=== PATIENT | female | born 1985 | race Caucasian/White ===

== ENCOUNTER → 2019-05-22 | Emergency (ER) | payer MEDICAID ==
[~2019-05-22] MED LIST: CEPH500C PO
--- OUTSIDE RECORDS SUMMARY | 2019-05-22 01:33 | XMS REPORT ---
Author Author ANA JAMES [facility] Address [address] [place] [address] Phone Unavailable Care Team Providers Care Powerhouse Mechanic Supervisor Name Role Phone ANA JAMES Unavailable Unavailable PROBLEMS Unknown Problems ALLERGIES No Known Allergies ENCOUNTERS Encounter Location Date Diagnosis [facility] [address] [id number] [place] [address] [phone] Sep, Dental examination Z01.20 [facility] [address] [id number] [place] [address] [phone] Jun, Dental examination Z01.20 [facility] [address] [id number] [place] [address] [phone] Feb, Dental examination Z01.20 [facility] [address] [id number] [place] [address] [phone] Nov, Dental examination Z01.20 [facility] [address] [id number] [place] [address] [phone] Nov, Encounter for dental exam and cleaning w/o abnormal findings Z01.20 [facility] [address] [id number] [place] [address] [phone] Jul, Encounter for dental examination and cleaning without abnormal findings Z01.[address] [id number] [phone] Jun, Encounter for dental examination Z01.20 [facility] [address] [id number], [place] [phone] Apr, Encounter for dental examination and cleaning without abnormal findings Z01.20 [facility] [address] [id number], [place] [phone] Jan, Encounter for dental examination and cleaning without abnormal findings Z01.20 [facility] [id number] [place] [address] [phone] Oct, Encounter for dental examination and cleaning without abnormal findings Z01.20 [facility] [address] [id number] [place] [phone] Jun, Encounter for dental examination and cleaning without abnormal findings Z01.20 [facility] [address] [id number] [place] [phone] Feb, Dental examination Z01.20 [facility] [address] [id number], [place] [phone] Feb, Encounter for dental examination and cleaning with abnormal findings Z01.21 [facility] [address] [facility] [id number] [place] [address] Jun, IMMUNIZATIONS No Known Immunizations SOCIAL HISTORY Never Assessed REASON FOR VISIT PLAN OF CARE Activity Details Follow Up 3 Months Reason:on site recall VITAL SIGNS MEDICATIONS Medication Instructions Dosage Frequency Start Date End Date Duration Status Depo-Provera 150 MG/ML 1 ml Active MiraLax Active Glimepiride 2 MG Active Desmopressin Acetate 0.1 MG Orally Twice a day 1 tablet 12h Active Loratadine 10 MG Orally Once a day 1 tablet 24h Active RESULTS No Results PROCEDURES Procedure Date Ordered Result Body Site SCREENING OF A PATIENT Oct 13, 2018 Billing Notes on claim Oct 13, 2018 INSTRUCTIONS MEDICATIONS ADMINISTERED No Known Medications MEDICAL (GENERAL) HISTORY Type Description Date Surgical History No know Surgical history
--- OUTSIDE RECORDS SUMMARY | 2019-05-22 01:33 | XMS REPORT ---
Author Author ANA JAMES Organization [facility] Address [address] [place] [address] Phone Unavailable Care Team Providers Care Drug And Alcohol Counselor Name Role Phone ANA JAMES Unavailable Unavailable PROBLEMS Unknown Problems ALLERGIES No Known Allergies ENCOUNTERS Encounter Location Date Diagnosis [facility] [id number] [place] [address] [phone] Feb, Dental examination Z01.20 [facility] [address] [id number] [place] [address] [phone] Nov, Dental examination Z01.20 [facility] [address] [id number] [place] [address] [phone] Nov, Encounter for dental exam and cleaning w/o abnormal findings Z01.20 [facility] [id number] [place] [address] [phone] Jul, Encounter for dental examination and cleaning without abnormal findings Z01.20 [facility] [address] [id number] [place] [phone] Jun, Encounter for dental examination Z01.20 [facility] [address] [id number] [place] [address] [phone] Apr, Encounter for dental examination and cleaning without abnormal findings Z01.20 [facility] [address] [id number] [place] [address] [phone] Jan, Encounter for dental examination and cleaning without abnormal findings Z01.20 [facility] [id number] [place] [address] [phone] Oct, Encounter for dental examination and cleaning without abnormal findings Z01.20 [facility] [address] [id number] [phone] Jun, Encounter for dental examination and cleaning without abnormal findings Z01.20 [facility] [address] [id number] [place] [phone] Feb, Dental examination Z01.20 [facility] [address] [id number] [place] [phone] Feb, Encounter for dental examination and cleaning with abnormal findings Z01.21 [facility] [address] [facility] [id number] [place] [address] Jun, IMMUNIZATIONS No Known Immunizations SOCIAL HISTORY Never Assessed REASON FOR VISIT ADULT OUTREACH [facility] PLAN OF CARE Activity Details Follow Up 3 Months Reason:ON SITE RECALL VITAL SIGNS MEDICATIONS Medication Instructions Dosage Frequency Start Date End Date Duration Status Desmopressin Acetate 0.1 MG Orally Twice a day 1 tablet 12h Unknown Glimepiride 2 MG Unknown Depo-Provera 150 MG/ML 1 ml Unknown Loratadine 10 MG Orally Once a day 1 tablet 24h Unknown RESULTS No Results PROCEDURES Procedure Date Ordered Result Body Site TOPICAL FLUORIDE VARNISH Nov 18, 2017 SCREENING OF A PATIENT Nov 18, 2017 Billing Notes on claim Nov 18, 2017 INSTRUCTIONS MEDICATIONS ADMINISTERED No Known Medications
--- OUTSIDE RECORDS SUMMARY | 2019-05-22 01:33 | XMS REPORT ---
Author Author TRISTEN OSUNA Organization [facility] Address [address] [place] [address] Care Team Providers Care Artificial Pearl Maker Name Role Phone TRISTEN OSUNA Unavailable PROBLEMS Unknown Problems ALLERGIES No Known Allergies ENCOUNTERS Encounter Location Date Diagnosis [facility] [id number] [place] [address] [phone] Jun, Dental examination Z01.20 [facility] [address] [id number] [place] [address] [phone] Feb, Dental examination Z01.20 [facility] [id number] [place] [address] [phone] Nov, Dental examination Z01.20 [facility] [address] [id number] [place] [address] [phone] Nov, Encounter for dental exam and cleaning w/o abnormal findings Z01.20 [facility] [address] [id number] [place] [address] [phone] Jul, Encounter for dental examination and cleaning without abnormal findings Z01.[address] [id number] [phone] Jun, Encounter for dental examination Z01.20 [facility] [address] [id number][place] [phone] Apr, Encounter for dental examination and cleaning without abnormal findings Z01.20 [facility] [id number] [place] [address] [phone] Jan, Encounter for dental examination and cleaning without abnormal findings Z01.20 [facility] [address] [id number][place] [phone] Oct, Encounter for dental examination and cleaning without abnormal findings Z01.20 [facility] [address] [id number] [place] [phone] Jun, Encounter for dental examination and cleaning without abnormal findings Z01.20 [facility] [address] [id number] [place] [phone] Feb, Dental examination Z01.20 [facility] [address] [facility] [id number] [place] [phone] Feb, Encounter for dental examination and cleaning with abnormal findings Z01.21 [facility] [address] [facility] [id number] [place] [address] Jun, IMMUNIZATIONS No Known Immunizations SOCIAL HISTORY Never Assessed REASON FOR VISIT ADULT OUTREACH [facility] PLAN OF CARE Activity Details Follow Up prn Reason:ON SITE RECALL VITAL SIGNS MEDICATIONS Medication Instructions Dosage Frequency Start Date End Date Duration Status MiraLax Active Glimepiride 2 MG Active Loratadine 10 MG Orally Once a day 1 tablet 24h Active Depo-Provera 150 MG/ML 1 ml Active Desmopressin Acetate 0.1 MG Orally Twice a day 1 tablet 12h Active RESULTS No Results PROCEDURES Procedure Date Ordered Result Body Site SCREENING OF A PATIENT Jun 22, 2018 Billing Notes on claim Jun 22, 2018 INSTRUCTIONS MEDICATIONS ADMINISTERED No Known Medications
--- OUTSIDE RECORDS SUMMARY | 2019-05-22 01:33 | XMS REPORT ---
Author Author ANA JAMES [facility] Address [address] [place] [address] Phone Unavailable Care Team Providers Care Product Development Ecologist Name Role Phone ANA JAMES Unavailable Unavailable PROBLEMS Unknown Problems ALLERGIES No Known Allergies ENCOUNTERS Encounter Location Date Diagnosis [facility] [address] [id number] [place]ASE [place] [phone] Jun, [facility] [id number] [place] [address] [phone] Feb, Dental examination Z01.20 [facility] [address] [id number] [place] [address] [phone] Nov, Dental examination Z01.20 [facility] [address] [id number] [place] [address] [phone] Nov, Encounter for dental exam and cleaning w/o abnormal findings Z01.20 [facility] [address] [id number] [place] [address] [phone] Jul, Encounter for dental examination and cleaning without abnormal findings Z01.[address] [facility] [address] [id number] [place]ASE [place] [phone] Jun, Encounter for dental examination Z01.20 [facility] [address] [id number] [place] [phone] Apr, Encounter for dental examination and cleaning without abnormal findings Z01.20 [facility] [address] [id number] [place] [phone] Jan, Encounter for dental examination and cleaning without abnormal findings Z01.20 [facility] [address] [id number] [place] [address] [phone] Oct, Encounter for dental examination and cleaning without abnormal findings Z01.20 [facility] [address] [id number] [place] [address] [phone] Jun, Encounter for dental examination and cleaning without abnormal findings Z01.20 [facility] [address] [id number] [place] [phone] Feb, Dental examination Z01.20 [facility] [address] [id number] [place] [phone] Feb, Encounter for dental examination and cleaning with abnormal findings Z01.21 [facility] [address] [facility] [id number] [place] [address] Jun, IMMUNIZATIONS No Known Immunizations SOCIAL HISTORY Never Assessed REASON FOR VISIT PLAN OF CARE Activity Details Follow Up prn Reason: VITAL SIGNS MEDICATIONS Medication Instructions Dosage Frequency Start Date End Date Duration Status Glimepiride 2 MG Active Desmopressin Acetate 0.1 MG Orally Twice a day 1 tablet 12h Active Depo-Provera 150 MG/ML 1 ml Active Loratadine 10 MG Orally Once a day 1 tablet 24h Active MiraLax Active RESULTS No Results PROCEDURES Procedure Date Ordered Result Body Site TOPICAL FLUORIDE VARNISH March 02, 2018 SCREENING OF A PATIENT March 02, 2018 INSTRUCTIONS MEDICATIONS ADMINISTERED No Known Medications
--- OUTSIDE RECORDS SUMMARY | 2019-05-22 01:33 | XMS REPORT ---
Author Author ANA JAMES Organization [facility] Address [address] [place] [address] Phone Unavailable Care Team Providers Care Graphic User Interface Designer Name Role Phone ANA JAMES Unavailable Unavailable PROBLEMS Unknown Problems ALLERGIES No Information ENCOUNTERS Encounter Location Date Diagnosis [facility] [id number] [place] [address] [phone] Feb, Dental examination Z01.20 [facility] [address] [id number] [place] [address] [phone] Nov, Dental examination Z01.20 [facility] [address] [id number] [place] [address] [phone] Nov, Encounter for dental exam and cleaning w/o abnormal findings Z01.20 [facility] [address] [id number] [place] [address] [phone] Jul, Encounter for dental examination and cleaning without abnormal findings Z01.20 [facility] [address] [id number] [place] [phone] Jun, Encounter for dental examination Z01.20 [facility] [address] [id number], [place] [phone] Apr, Encounter for dental examination and cleaning without abnormal findings Z01.20 [facility] [address] [id number] [place] [address] [phone] Jan, Encounter for dental examination and cleaning without abnormal findings Z01.20 [facility] [address] [id number] [place] [address] [phone] Oct, Encounter for dental examination and cleaning without abnormal findings Z01.20 [facility] [address] [id number], [place] [phone] Jun, Encounter for dental examination and cleaning without abnormal findings Z01.20 [facility] [address] [id number] [place] [phone] Feb, Dental examination Z01.20 [facility] [address] [id number] [place] [phone] Feb, Encounter for dental examination and cleaning with abnormal findings Z01.21 [facility] [address] [facility] [id number] [place] [address] Jun, IMMUNIZATIONS No Known Immunizations SOCIAL HISTORY Never Assessed REASON FOR VISIT ADULT OUTREACH [facility] PLAN OF CARE Activity Details Follow Up 3 Months Reason:ON SITE RECALL VITAL SIGNS MEDICATIONS No Known Medications RESULTS No Results PROCEDURES Procedure Date Ordered Result Body Site TOPICAL FLUORIDE VARNISH Jul 22, 2017 SCREENING OF A PATIENT Jul 22, 2017 Billing Notes on claim Jul 22, 2017 INSTRUCTIONS MEDICATIONS ADMINISTERED No Known Medications
--- OUTSIDE RECORDS SUMMARY | 2019-05-22 01:34 | XMS REPORT | Continuity of Care Document ---
Author Organization Unknown Address Unknown Allergies Active Description Code Type Severity Reaction Onset Reported/Identified Relationship to Patient Clinical Status Yes diazepam [id number] Drug Allergy Unknown N/A 12/17/2017 Medications There is no data. Problems Date Dx Coded Attending Type Code Diagnosis Diagnosed By 12/18/2017 SUSHMA LOPEZ MD Ot F79 UNSPECIFIED INTELLECTUAL DISABILITIES 12/18/2017 SUSHMA LOPEZ MD Ot G40.909 EPILEPSY, UNSP, NOT INTRACTABLE, WITHOUT 12/18/2017 SUSHMA LOPEZ MD Ot K59.00 CONSTIPATION, UNSPECIFIED 12/18/2017 SUSHMA LOPEZ MD Ot N39.0 URINARY TRACT INFECTION, SITE NOT SPECIF 12/18/2017 SUSHMA LOPEZ MD Ot F79 UNSPECIFIED INTELLECTUAL DISABILITIES 12/18/2017 SUSHMA LOPEZ MD Ot G40.909 EPILEPSY, UNSP, NOT INTRACTABLE, WITHOUT 12/18/2017 SUSHMA LOPEZ MD Ot K59.00 CONSTIPATION, UNSPECIFIED 12/18/2017 SUSHMA LOPEZ MD Ot N39.0 URINARY TRACT INFECTION, SITE NOT SPECIF Procedures There is no data. Results Test Result Range Influenza virus A and B antigen detection - 12/17/17 22:44 FLU RESULT NEGATIVE FOR INFLUENZA A AND B ANTIGENS BY IA NRG Urine beta human chorionic gonadotropin (hCG) measurement - 12/18/17 02:00 Urine beta human chorionic gonadotropin (hCG) measurement NEGATIVE NEGATIVE Complete urinalysis with reflex to culture - 12/18/17 02:00 Urine color determination YELLOW NRG Urine clarity determination SLIGHTLY CLOUDY NRG Urine pH measurement by test strip 5 5-9 Specific gravity of urine by test strip 1.025 1.016-1.022 Urine protein assay by test strip, semi-quantitative NEGATIVE NEGATIVE Urine glucose detection by automated test strip 4+ NEGATIVE Erythrocytes detection in urine sediment by light microscopy 1+ NEGATIVE Urine ketones detection by automated test strip 4+ NEGATIVE Urine nitrite detection by test strip NEGATIVE NEGATIVE Urine total bilirubin detection by test strip NEGATIVE NEGATIVE Urine urobilinogen measurement by automated test strip (mass/volume) NORMAL NORMAL Urine leukocyte esterase detection by dipstick 3+ NEGATIVE Automated urine sediment erythrocyte count by microscopy (number/high power field) RARE NRG Automated urine sediment leukocyte count by microscopy (number/high power field) [HPF] NRG Bacteria detection in urine sediment by light microscopy MODERATE NRG Squamous epithelial cells detection in urine sediment by light microscopy 10-25 NRG Crystals detection in urine sediment by light microscopy NONE NRG Casts detection in urine sediment by light microscopy NONE NRG Mucus detection in urine sediment by light microscopy NEGATIVE NRG Complete urinalysis with reflex to culture YES NRG Bacterial urine culture - 12/18/17 02:00 URINE CULTURE RESULTS MORE THAN 3 ISOLATES NRG Complete blood count (CBC) with automated white blood cell (WBC) differential - 12/18/17 02:10 Blood leukocytes automated count (number/volume) 10.8 10*3/uL 4.3-11.0 Blood erythrocytes automated count (number/volume) 4.58 10*6/uL 4.35-5.85 Venous blood hemoglobin measurement (mass/volume) 15.3 g/dL 11.5-16.0 Blood hematocrit (volume fraction) 42 % 35-52 Automated erythrocyte mean corpuscular volume 92 [foz_us] 80-99 Automated erythrocyte mean corpuscular hemoglobin (mass per erythrocyte) 33 pg 25-34 Automated erythrocyte mean corpuscular hemoglobin concentration measurement (mass/volume) 36 g/dL 32-36 Automated erythrocyte distribution width ratio 12.5 % 10.0- 14.5 Automated blood platelet count (count/volume) 200 10*3/uL 130-400 Automated blood platelet mean volume measurement 11.4 [foz_us] 7.4-10.4 Automated blood neutrophils/100 leukocytes 85 % 42-75 Automated blood lymphocytes/100 leukocytes 12 % 12-44 Blood monocytes/100 leukocytes 3 % 0-12 Automated blood eosinophils/100 leukocytes 0 % 0-10 Automated blood basophils/100 leukocytes 0 % 0-10 Blood neutrophils automated count (number/volume) 9.2 10*3 1.8-7.8 Blood lymphocytes automated count (number/volume) 1.3 10*3 1.0-4.0 Blood monocytes automated count (number/volume) 0.3 10*3 0.0- 1.0 Automated eosinophil count 0.0 10*3/uL 0.0-0.3 Automated blood basophil count (count/volume) 0.0 10*3/uL 0.0-0.1 Comprehensive metabolic panel - 12/18/17 02:10 Serum or plasma sodium measurement (moles/volume) 135 mmol/L 135-145 Serum or plasma potassium measurement (moles/volume) 3.6 mmol/L 3.6-5.0 Serum or plasma chloride measurement (moles/volume) 104 mmol/L 98-107 Carbon dioxide 16 mmol/L 21-32 Serum or plasma anion gap determination (moles/volume) 15 mmol/L 5-14 Serum or plasma urea nitrogen measurement (mass/volume) 11 mg/dL 7-18 Serum or plasma creatinine measurement (mass/volume) 0.77 mg/dL 0.60-1.30 Serum or plasma urea nitrogen/creatinine mass ratio 14 NRG Serum or plasma creatinine measurement with calculation of estimated glomerular filtration rate > NRG Serum or plasma glucose measurement (mass/volume) 250 mg/dL 70-105 Serum or plasma calcium measurement (mass/volume) 9.3 mg/dL 8.5-10.1 Serum or plasma total bilirubin measurement (mass/volume) 0.7 mg/dL 0.1-1.0 Serum or plasma alkaline phosphatase measurement (enzymatic activity/volume) 71 U/L 40-136 Serum or plasma aspartate aminotransferase measurement (enzymatic activity/volume) 12 U/L 5-34 Serum or plasma alanine aminotransferase measurement (enzymatic activity/volume) 26 U/L 0-55 Serum or plasma protein measurement (mass/volume) 7.6 g/dL 6.4-8.2 Serum or plasma albumin measurement (mass/volume) 4.2 g/dL 3.2-4.5 Magnesium - 12/18/17 02:10 Magnesium 2.3 mg/dL 1.8-2.4 Serum or plasma troponin i.cardiac measurement (mass/volume) - 12/18/17 02:10 Serum or plasma troponin i.cardiac measurement (mass/volume) < ng/mL <0.30 Serum or plasma C reactive protein measurement (mass/volume) - 12/18/17 02:10 Serum or plasma C reactive protein measurement (mass/volume) 0.95 mg/dL 0.00-0.50 Blood lactic acid measurement (moles/volume) - 12/18/17 02:10 Blood lactic acid measurement (moles/volume) 2.66 mmol/L 0.50- 2.00 Serum or plasma lactate measurement (moles/volume) - 12/18/17 06:38 Serum or plasma lactate measurement (moles/volume) 1.78 mmol/L 0.50-2.00 Encounters ACCT No. Visit Date/Time Discharge Status Pt. Type Provider Facility Loc./Unit Complaint [id number] 12/17/2017 22:34:00 12/18/2017 09:46:00 DIS Inpatient JESSICA GOMEZ, SUSHMA Munoz [facility] 4TH SEPSIS,UTI [id number] 06/10/2013 14:02:00 06/10/2013 23:59:59 CLS Outpatient
--- OUTSIDE RECORDS SUMMARY | 2019-05-22 01:34 | XMS REPORT ---
Author Author ANA JAMES [facility] Address [address] [place] [address] Phone Unavailable Care Team Providers Care Corporate Buyer Name Role Phone ANA JAMES Unavailable Unavailable PROBLEMS Unknown Problems ALLERGIES No Known Allergies ENCOUNTERS Encounter Location Date Diagnosis [facility] [address] [facility] [id number], [place] [address] Feb, [facility] [id number] [place] [phone] Nov, Dental examination Z01.20 [facility] [id number] [place] [phone] Nov, Encounter for dental exam and cleaning w/o abnormal findings Z01.20 [facility] [id number] [place] [id number] Jul, Encounter for dental examination and cleaning without abnormal findings [facility]01.[facility] [address] [id number] [phone] Jun, Encounter for dental examination Z01.20 [facility] [id number] [place] [phone] Apr, Encounter for dental examination and cleaning without abnormal findings Z01.20 [facility] [address] [facility] [id number] [id number] Jan, Encounter for dental examination and cleaning without abnormal findings Z01.20 [facility] [id number] [place] [phone] Oct, Encounter for dental examination and cleaning without abnormal findings Z01.20 [facility] [address] [id number] [phone] Jun, Encounter for dental examination and cleaning without abnormal findings [facility]01.[facility] [address] [id number] [place] [phone] Feb, Dental examination Z01.20 [facility] [address] [id number] [place] [phone] Feb, Encounter for dental examination and cleaning with abnormal findings Z01.21 [facility] [address] [facility] [id number] [place] [address] Jun, IMMUNIZATIONS No Known Immunizations SOCIAL HISTORY Never Assessed REASON FOR VISIT ADULT OUTREACH CLASS [facility] PLAN OF CARE Activity Details Follow Up NEXT MONTH Reason:ON SITE DENTAL EXAM VITAL SIGNS MEDICATIONS Medication Instructions Dosage Frequency Start Date End Date Duration Status Glimepiride 2 MG Active Desmopressin Acetate 0.1 MG Orally Twice a day 1 tablet 12h Active Depo-Provera 150 MG/ML 1 ml Active Loratadine 10 MG Orally Once a day 1 tablet 24h Active RESULTS No Results PROCEDURES Procedure Date Ordered Result Body Site SCREENING OF A PATIENT May 12, 2017 Billing Notes on claim May 12, 2017 INSTRUCTIONS MEDICATIONS ADMINISTERED No Known Medications
--- NOTE | 2019-05-22 02:20 | NUR ---
Patient was not in the waiting room when called.
== END | disposition left against medical advice (07) ==
LOC: EDUNIT# 01:26 → ER 01:28
DX: R45.83 Excessive crying of child, adolescent or adult (principal)

== ENCOUNTER 2020-09-27 22:47 | Emergency (ER) | payer MEDICAID ==
[~2020-09-27] VITALS: Ht 149 cm; Wt 73.0 kg
[2020-09-27] MEDS ORDERED: DESM0.1T5 (23:00)
[2020-09-27] MEDS ORDERED: GLIM2TAB4 (23:00)
[2020-09-27] MEDS ORDERED: ATOR10TA66 (23:00)
[2020-09-27] MEDS ORDERED: MEDR150D6 (23:00)
[2020-09-27] MEDS ORDERED: NS IV 1000 ML 1,000 ML IV SCH (23:07)
[2020-09-27 23:16] LABS: BASOPHILS # (AUTO) 0.1 10^3/uL (0.0-0.1); BASOPHILS % (AUTO) 0 % (0-10); EOSINOPHILS % (AUTO) 0 % (0-10); HEMATOCRIT 44 % (35-52); HEMOGLOBIN 15.5 g/dL (11.5-16.0); LYMPHOCYTES # (AUTO) 1.1 10^3/uL (1.0-4.0); LYMPHOCYTES % (AUTO) 7 % (12-44); MEAN CORPUSCULAR HEMOGLOBIN 33 pg (25-34); MEAN CORPUSCULAR HGB CONC 35 g/dL (32-36); MEAN CORPUSCULAR VOLUME 94 fL (80-99); MEAN PLATELET VOLUME 11.8 fL (9.0-12.2); MONOCYTES # (AUTO) 0.5 10^3/uL (0.0-1.0); MONOCYTES % (AUTO) 3 % (0-12); NEUTROPHILS # (AUTO) 15.9 10^3/uL (1.8-7.8); NEUTROPHILS % (AUTO) 90 % (42-75); PLATELET COUNT 277 10^3/uL (130-400); WHITE BLOOD COUNT 17.7 10^3/uL (4.3-11.0)
[2020-09-27 23:27] LABS: BAND NEUTROPHILS 2 %; BASOPHILS % (MANUAL) 0 %; EOSINOPHILS % (MANUAL) 0 %; LYMPHOCYTES % (MANUAL) 8 %; MONOCYTES % (MANUAL) 2 %; NEUTROPHILS % (MANUAL) 88 %; PROTHROMBIN TIME PATIENT 13.9 SEC (12.2-14.7); TOXIC GRANULATION/VACUOLAZATIO 1+
[2020-09-27 23:36] LABS: ALANINE AMINOTRANSFERASE 28 U/L (0-55); ALBUMIN 4.5 GM/DL (3.2-4.5); ALKALINE PHOSPHATASE 103 U/L (40-136); BILIRUBIN,TOTAL 0.6 MG/DL (0.1-1.0); BUN/CREATININE RATIO 14; CALCIUM 9.6 MG/DL (8.5-10.1); CARBON DIOXIDE 15 MMOL/L (21-32); CHLORIDE 108 MMOL/L (98-107); CREATININE SERUM 0.95 MG/DL (0.60-1.30); GFR ESTIMATED > 60; GLUCOSE 324 MG/DL (70-105); POTASSIUM 3.7 MMOL/L (3.6-5.0); SODIUM 141 MMOL/L (135-145); TOTAL PROTEIN 7.6 GM/DL (6.4-8.2)
[2020-09-27 23:47] LABS: BILIRUBIN,URINE NEGATIVE (NEGATIVE); CLARITY,URINE CLEAR; COLOR,URINE YELLOW; GLUCOSE, URINE (UA) 2+ (NEGATIVE); KETONES,URINE 3+ (NEGATIVE); LEUKOCYTE ESTERASE ,URINE NEGATIVE (NEGATIVE); NITRITE,URINE NEGATIVE (NEGATIVE); PH,URINE 5.5 (5-9); PROTEIN,URINE NEGATIVE (NEGATIVE)
--- NOTE | 2020-09-27 23:55 | ED General ---
General Chief Complaint: General Problems/Pain Stated Complaint: CONTINUOUS CRYING Nursing Triage Note: brought in by caregiver for "crying" since 1899. pt with hx m.r. mentaliity of approx. 15month old. Nursing Sepsis Screen: No Definite Risk Source of Information: Caregiver Exam Limitations: Other (PT WITH SEVERE DEVELOPMENTAL DISABILITY AND IS ESSENTIALLY UNABLE TO COMMUNICATE) History of Present Illness Date Seen by Provider: Sep 27, 2020 Time Seen by Provider: 22:50 Initial Comments PT ARRIVES VIA POV FROM HOME, WITH SUPERVISOR UNDERWRITING CLERKS SUPERVISOR UNDERWRITING CLERKS AND HER HAVE BEEN PERMANENT CAREGIVERS FOR PT FOR THE LAST 12 YEARS PT HAS A SEPARATE LEGAL GUARDIAN PT REQUIRES FULL ASSIST WITH ALL ADL'S PT HAS MENTALITY OF A 15 MONTH OLD CHILD. SUPERVISOR UNDERWRITING CLERKS STATES THAT PT HAS BEEN "CRYING" SINCE 1899 TONIGHT--"CRYING" IS ACTUALLY A SINGLE, SAME PITCHED "MOAN/WAIL" THAT SHE REPEATS CONTINUOUSLY. THERE ARE NO ACTUAL TEARS SUPERVISOR UNDERWRITING CLERKS DOES STATE THAT SHE BROKE OUT IN A SWEAT AROUND 1899 WELL DID NOT CHECK TEMP NO COUGH NO SHORTNESS OF BREATH NO KNOWN VOMITING OR DIARRHEA HAS BEEN EATING AND DRINKING USUAL PT HAS BEEN AT "SCHOOL" / ADULT DAY CARE ALL DAY AND NO REPORTED PROBLEMS THERE. NO FEVER OR RECENT ILLNESS NO KNOWN EXPOSURE TO COVID-19 PT IS NON-INSULIN DEPENDENT DIABETIC/ TAKES ORAL MEDICATIONS, BUT NEVER CHECKS HER BLOOD GLUCOSE. PT HAS CHRONIC INCONTINENCE AND WEARS AN ADULT DIAPER SHE ALSO HAS CHRONIC CONSTIPATION. HAD DEPO-PROVERA SHOT 2 WEEKS AGO ON ARRIVAL, PT WALKED FROM PARKING LOT, TO WAITING ROOM AND THEN ON WALKING INTO THE ER, SHE PT PROMPTLY SAT ON THE FLOOR OF ER HALLWAY AND REFUSED TO GET UP, EVENTUALLY MULTIPLE STAFF MEMBERS HAD TO PICK HER UP AND CARRY HER INTO ROOM AND ON TO ER CART. SUPERVISOR UNDERWRITING CLERKS STATES THIS IS COMPLETELY NORMAL AND DAILY BEHAVIOR FOR THIS PT--WHEN SHE DOES NOT WANT TO DO SOMETHING, AND SHE AND FREQUENTLY HAVE TO PHYSICALLY PICK HER UP TO GET HER UP FROM THE FLOOR PCP: DR. KILLIAN Allergies and Home Medications Allergies Coded Allergies: diazepam (Verified Allergy, Unknown, 12/17/17) Home Medications Cefuroxime Axetil 500 Mg Tablet, 500 MG PO BID Prescribed by: ALONSO SMYTH on 09/28/20 0020 Cephalexin 500 Mg Capsule, 500 MG PO 3 times a day Prescribed by: SUSHMA LOPEZ on 12/18/17 0946 Patient Home Medication List Home Medication List Reviewed: Yes Review of Systems Review of Systems Constitutional: see HPI (CHANGE IN BEHAVIOR) EENTM: other (HAS CHRONIC DENTAL ISSUES, AND IS SUPPOSED TO BE GETTING SET UP WITH DENTIST TO HAVE EXAM UNDER ANESTHESIA AND SEVERAL TEETH PULLED. ) Respiratory: No cough, No short of breath Gastrointestinal: No diarrhea, No loss of appetite, No vomiting Genitourinary: see HPI (CHRONIC INCONTINENCE) Skin: No rash Psychiatric/Neurological: See HPI Hematologic/Lymphatic: Denies Easy Bleeding, Denies Easy Bruising Past Gijwnqt-Qumclp-Djpvao Hx Past Med/Social Hx: Reviewed and Corrections made Patient Social History Alcohol Use: Denies Use Recreational Drug Use: No Smoking Status: Never a Smoker 2nd Hand Smoke Exposure: No Recent Foreign Travel: No Contact w/Someone Who Travel: No Recent Infectious Disease Expo: No Recent Hopitalizations: No Physical Abuse: No Sexual Abuse: No Mistreated: No Fear: No Immunizations Up To Date Date of Influenza Vaccine: Aug 15, 2017 Seasonal Allergies Seasonal Allergies: Yes Past Medical History Surgeries: No Respiratory: No Cardiac: Yes High Cholesterol Neurological: Yes (MR/DEVELOPMENTAL DISABILITY WITH MENTALITY OF 15 MONTH OLD. ) Developmental Disorder Genitourinary: No Gastrointestinal: Yes Chronic Constipation Musculoskeletal: No Endocrine: No HEENT: No Cancer: No Psychosocial: Yes (MR) Integumentary: No Blood Disorders: No Physical Exam Vital Signs Vital Signs - First Documented 09/27/20 22:50 Temp 37.0 Pulse 165 Resp 26 B/P (MAP) 157/112 (127) Pulse Ox 96 O2 Delivery Room Air Capillary Refill : Less Than 3 Seconds Height, Weight, BMI Height: 4'11.00" Weight: 193lbs. 4.0oz. [id number]; 32.00 BMI Method:Stated General Appearance: Obese, Other (BEHAVIOR NOTED ABOVE. OCCASIONALLY, PT WILL YELL REPEATEDLY "MOM" "OUCH OR OUT OR HOT". VIGOROUSLY FIGHTS TAKING VITALS, OBTAINING LAB, ETC. ) HEENT: Other (UNABLE TO DO FULL ENT EXAM--NO OBVIOUS EXTERNAL ABNORMALITIES. NO DROOLING. ORAL MUCOSA MOIST. LIMITED VIEW OF DENTITION SH0WS EXTENSIVE GINGIVITIS AND DENTAL DECAY WITH MANY NERVE ROOTS EXPOSED. ) Respiratory: Normal Breath Sounds, No Accessory Muscle Use, No Respiratory Distress Cardiovascular: No Edema, No Murmur, Tachycardia (170-180 ON ARRIVAL, WHILE FIGHTING WITH STAFF AND CAREGIVER. ) Gastrointestinal: Non Tender, Soft Extremity: Normal Range of Motion, No Pedal Edema Neurologic/Psychiatric: Alert, Other (GROSS MOTOR AND SENSORY IS INTACT, BUT PT CANNOT FOLLOW ANY COMMANDS, DOES NOT APPEAR TO UNDERSTAND ANYTHING THAT IS GOING ON, AND IS NOT ABLE TO COMMUNICATE WITH GESTURES, AND HAS VERY MINIMAL LANGUAGE, AND THIS IS NON-SENSICAL/NON-RELEVANT SINGLE WORDS AND SOUNDS THAT ARE REPEATED OVER AND OVER NON-STOP FOR THE ENTIRE STAY. ) Skin: Normal Color, Warm/Dry; No Ecchymosis, No Rash Progress/Results/Core Measures Suspected Sepsis Recent Fever Within 48 Hours: No Infection Criteria Present: None New/Unexplained Altered Menta: No Sepsis Screen: No Definite Risk SIRS Temperature: Pulse: 165 Respiratory Rate: 26 Laboratory Tests 09/27/20 23:06: White Blood Count 17.7H Blood Pressure 157 /112 Mean: 127 Laboratory Tests 09/27/20 23:06: Creatinine 0.95, INR Comment 1.0, Platelet Count 277, Total Bilirubin 0.6 Results/Orders Lab Results Laboratory Tests Test 09/27/20 23:06 09/27/20 23:35 Range/Units White Blood Count 17.7 H 4.3-11.0 10^3/uL Red Blood Count 4.67 3.80-5.11 10^6/uL Hemoglobin 15.5 11.5-16.0 g/dL Hematocrit 44 35-52 % Mean Corpuscular Volume 94 80-99 fL Mean Corpuscular Hemoglobin 33 25-34 pg Mean Corpuscular Hemoglobin Concent 35 32-36 g/dL Red Cell Distribution Width 11.9 10.0-14.5 % Platelet Count 277 130-400 10^3/uL Mean Platelet Volume 11.8 9.0-12.2 fL Immature Granulocyte % (Auto) 0 % Neutrophils (%) (Auto) 90 H 42-75 % Lymphocytes (%) (Auto) 7 L 12-44 % Monocytes (%) (Auto) 3 0-12 % Eosinophils (%) (Auto) 0 0-10 % Basophils (%) (Auto) 0 0-10 % Neutrophils # (Auto) 15.9 H 1.8-7.8 10^3/uL Lymphocytes # (Auto) 1.1 1.0-4.0 10^3/uL Monocytes # (Auto) 0.5 0.0-1.0 10^3/uL Eosinophils # (Auto) 0.0 0.0-0.3 10^3/uL Basophils # (Auto) 0.1 0.0-0.1 10^3/uL Immature Granulocyte # (Auto) 0.1 0.0-0.1 10^3/uL Neutrophils % (Manual) 88 % Lymphocytes % (Manual) 8 % Monocytes % (Manual) 2 % Eosinophils % (Manual) 0 % Basophils % (Manual) 0 % Band Neutrophils 2 % Toxic Granulation 1+ Prothrombin Time 13.9 12.2-14.7 SEC INR Comment 1.0 0.8-1.4 Activated Partial Thromboplast Time 25 24-35 SEC Sodium Level 141 135-145 MMOL/L Potassium Level 3.7 3.6-5.0 MMOL/L Chloride Level 108 H 98-107 MMOL/L Carbon Dioxide Level 15 L 21-32 MMOL/L Anion Gap 18 H 5-14 MMOL/L Blood Urea Nitrogen 13 7-18 MG/DL Creatinine 0.95 0.60-1.30 MG/DL Estimat Glomerular Filtration Rate > 60 BUN/Creatinine Ratio 14 Glucose Level 324 H 70-105 MG/DL Glucometer 292 H 70-110 MG/DL Calcium Level 9.6 8.5-10.1 MG/DL Corrected Calcium 9.2 8.5-10.1 MG/DL Magnesium Level 2.0 1.6-2.4 MG/DL Total Bilirubin 0.6 0.1-1.0 MG/DL Aspartate Amino Transf (AST/SGOT) 11 5-34 U/L Alanine Aminotransferase (ALT/SGPT) 28 0-55 U/L Alkaline Phosphatase 103 40-136 U/L Myoglobin 89.3 10.0-92.0 NG/ML Troponin I < 0.028 <0.028 NG/ML B-Type Natriuretic Peptide < 10.0 <100.0 PG/ML Total Protein 7.6 6.4-8.2 GM/DL Albumin 4.5 3.2-4.5 GM/DL TSH Ball Testing 0.69 0.35-4.94 UIU/ML Serum Test, Qualitative NEGATIVE NEGATIVE Urine Color YELLOW Urine Clarity CLEAR Urine pH 5.5 5-9 Urine Specific [place] >=1.030 1.016-1.022 Urine Protein NEGATIVE NEGATIVE Urine Glucose (UA) 2+ H NEGATIVE Urine Ketones 3+ H NEGATIVE Urine Nitrite NEGATIVE NEGATIVE Urine Bilirubin NEGATIVE NEGATIVE Urine Urobilinogen 0.2 < = 1.0 MG/DL Urine Leukocyte Esterase NEGATIVE NEGATIVE Urine RBC (Auto) NEGATIVE NEGATIVE Urine RBC NONE /HPF Urine WBC NONE /HPF Urine Squamous Epithelial Cells 5-10 /HPF Urine Crystals NONE /LPF Urine Bacteria NEGATIVE /HPF Urine Casts NONE /LPF Urine Mucus LARGE H /LPF Urine Culture Indicated NO My Orders Orders - ALONSO SMYTH DO Ed Iv/Invasive Line Start (09/27/20 23:00) Ekg Tracing (09/27/20) Monitor-Rhythm Ecg Trace Only (09/27/20) Straight Cath For Spec.-Adult (09/27/20) Chest 1 View, Ap/Pa Only (09/27/20:) BNP (09/27/20:) Cbc With Automated Diff (09/27/20) Comprehensive Metabolic Panel (09/27/20:) Hcg,Qualitative Serum (09/27/20:) Magnesium (09/27/20:) Protime With Inr (09/27/20:) Partial Thromboplastin Time (09/27/20:) Thyroid Analyzer (09/27/20:) Ua Culture If Indicated (09/27/20:) Myoglobin Serum (09/27/20:) Troponin I (09/27/20 23:) Ed Iv/Invasive Line Start (09/27/20 23:00) Accucheck Stat ONCE (09/27/20 23:07) Ed Iv/Invasive Line Start (09/27/20 23:07) Ns Iv 1000 Ml (Sodium Chloride 0.9%) (09/27/20 23:07) Manual Differential (09/27/20 23:06) Ed Iv/Invasive Line Start (09/28/20 00:07) Ns Iv 1000 Ml (Sodium Chloride 0.9%) (09/28/20 00:07) Ceftriaxone For Iv Use (Rocephin For I (09/28/20 00:15) Ketorolac Injection (Toradol Injection) (09/28/20 00:15) Diphenhydramine Injection (Benadryl Inje (09/28/20 00:15) Medications Given in ED Current Medications Medications Dose Ordered Sig/Arely Route Start Time Stop Time Status Last Admin Dose Admin Ceftriaxone Sodium 1000 mg/ Sterile Water 10 ml @ 200 mls/hr ONCE ONCE IV 09/28/20 00:15 09/28/20 00:17 DC 09/28/20 00:18 200 MLS/HR Diphenhydramine HCl 50 mg ONCE ONCE IVP 09/28/20 00:15 09/28/20 00:16 DC 09/28/20 00:18 50 MG Ketorolac Tromethamine 30 mg ONCE ONCE IVP 09/28/20 00:15 09/28/20 00:16 DC 09/28/20 00:19 30 MG Vital Signs/I&O 09/27/20 09/28/20 09/28/20 22:50 00:19 01:16 Temp 37.0 37.0 37.3 Pulse 165 105 Resp 26 20 B/P (MAP) 157/112 (127) 127/93 (127) Pulse Ox 96 99 O2 Delivery Room Air Room Air Capillary Refill : Less Than 3 Seconds Blood Pressure Mean: 127 Point of Care Testing Finger Stick Blood Glucose: 292 Blood Glucose Action Taken: dr. smyth Progress Note : Progress Note MOM LATER STATES THAT THIS "CRYING" / MOANING IS COMPLETELY NORMAL FOR HER, SHE DOES NOT HAVING TEARS. STATES SHE DID HAVE SOME TEARS INITIALLY AROUND 1900, BUT NO TEARS SINCE WILL HYDRATE, GIVE IV ANTIBIOTICS FOR DENTAL INFECTION, WELL TORADOL FOR PAIN AND BENADRYL FOR AGITATION.--PT IS NO LONGER "CRYING"/MOANING AND IS RESTING QUIETLY AND IS MUCH LESS AGITATED. HEART RATE DOWN PT CALMED AND VITALS STABLE AT DISMISSAL ECG Initial ECG Impression Date: Sep 28, 2020 Initial ECG Impression Time: 23:01 Initial ECG Rate: 152 Initial ECG Rhythm: S.Tach Diagnostic Imaging Comments CXR--POOR INSPIRATION/LIMITED EXAM, NO ACUTE PROCESS--PENDING RADIOLOGIST REVIEW Reviewed: Reviewed by Me Departure Impression Primary Impression: Dental infection Additional Impressions: Diabetes mellitus, insulin dependent (IDDM), uncontrolled Developmental disability Leukocytosis Disposition: HOME, SELF-CARE Condition: Improved Departure-Patient Inst. Referrals: MELIZA KILLIAN DO (PCP/Family) Primary Care Physician Patient Instructions: Diabetes Diet , Diabetes and Infections, Gingivitis (DC), Tooth Abscess (DC) Add. Discharge Instructions: CHECK BLOOD GLUCOSE AT LEAST 3 TIMES A DAY, BEFORE EACH MEAL AND KEEP DIARY TYLENOL AND MOTRIN NEEDED FOR PAIN FOLLOW UP WITH DENTIST NEXT WEEK FOR FURTHER CARE FOLLOW UP WITH DR. KILLIAN NEXT WEEK FOR FURTHER CARE RETURN TO ER IF SYMPTOMS WORSEN All discharge instructions reviewed with patient and/or family. Voiced understanding. Scripts Cefuroxime Axetil (Cefuroxime) 500 Mg Tablet 500 MG PO BID, #20 TAB Prov: ALONSO SMYTH DO 09/28/20 ALONSO SMYTH DO Sep 27, 2020 23:55
[2020-09-27 23:56] LABS: BACTERIA,URINE NEGATIVE /HPF
[2020-09-27 23:56] LABS: TSH (THYROID ANALYZER) 0.69 UIU/ML (0.35-4.94)
[2020-09-28] MEDS ORDERED: NS IV 1000 ML 1,000 ML IV SCH (00:07)
[2020-09-28] MEDS ORDERED: KETOROLAC 30 MG/ML VIAL IVP ONE (00:15)
[2020-09-28] MEDS ORDERED: diphenhydrAMINE 50 MG/ML INJ (BENADRYL) IVP ONE (00:15)
[2020-09-28] MEDS ORDERED: cefTRIAXone FOR IV USE 1,000 MG in WATER (STERILE) FOR INJECTION 10 ML IV ONE (00:15)
[2020-09-28] MEDS ORDERED: CEFU500T63 PO (00:20)
[2020-09-28 01:16] VITALS: BP 127/93
--- NOTE | 2020-09-28 05:44 | Diagnostic Imaging Report ---
INDICATION: TACHYCARDIA COMPARISON: 12/17/2017 FINDINGS: Single frontal view of the chest demonstrates normal heart size and pulmonary vascularity. The lungs show low respiratory volumes with crowding of the central hilar structures, but are otherwise clear. No large pleural effusion or pneumothorax is seen. The visualized osseous structures show no acute abnormalities. IMPRESSION: 1. Low lung volumes, but otherwise no acute cardiopulmonary process. Dictated by: Dictated on workstation # [id number]
== END 2020-09-28 01:21 | disposition home or self-care (01) ==
LOC: EDUNIT# 22:47 → ER 22:48
DX: K04.7 Periapical abscess without sinus (principal); E10.9 Type 1 diabetes mellitus without complications; F81.9 Developmental disorder of scholastic skills, unspecified; D72.829 Elevated white blood cell count, unspecified; E66.9 Obesity, unspecified; Z68.32 Body mass index [BMI] 32.0-32.9, adult; Z88.8 Allergy status to other drugs, medicaments and biological substances
CPT/HCPCS: 36415; 51701; 71045; 80053; 81000; 82962; 83735; 83874; 83880; 84443; 84484; 84703; 85007; 85027; 85610; 85730; 93041